=== PATIENT | male | born 1975 | race Caucasian/White ===

== ENCOUNTER 2019-11-20 20:03 | Emergency (ER) | payer OTHER ==
[~2019-11-20] VITALS: Ht 175.3 cm; Wt 74.8 kg
[2019-11-21] MEDS ORDERED: LOSA50 PO (02:06)
[2019-11-21] MEDS ORDERED: Naltrexone HCl50 MG PO (02:06)
[2019-11-21] MEDS ORDERED: ATOM60 PO (02:07)
[2019-11-21] MEDS ORDERED: IBUP800 PO (02:07)
[2019-11-21] MEDS ORDERED: ESCI10 PO (02:07)
[2019-11-21] MEDS ORDERED: ARIP20 PO (02:07)
[2019-11-21] MEDS ORDERED: BUSP10 PO (02:08)
[2019-11-21] MEDS ORDERED: PRAZ1 PO (02:08)
[2019-11-21] MEDS ORDERED: HYDPAM50 PO (02:09)
[2019-11-21] MEDS ORDERED: DONE5 PO (02:09)
[2019-11-21] MEDS ORDERED: Catapres0.2 MG PO (02:09)
== END 2019-11-21 02:41 | disposition home or self-care (01) ==
LOC: ER 20:03
DX: R19.7 Diarrhea, unspecified (principal); F17.200 Nicotine dependence, unspecified, uncomplicated
CPT/HCPCS: 99283

== ENCOUNTER 2020-05-20 17:45 | Emergency (ER) | payer OTHER ==
[~2020-05-20] VITALS: Ht 172.7 cm; Wt 74.8 kg
[~2020-05-20 17:45] MED LIST: ARIP20 PO; ATOM60 PO; BUSP10 PO; Catapres0.2 MG PO; DONE5 PO; ESCI10 PO; HYDPAM50 PO; IBUP800 PO; LOSA50 PO; Naltrexone HCl50 MG PO; PRAZ1 PO
[2020-05-20] MEDS ORDERED: Bactrim Ds Tab1 EACH PO (18:27)
== END 2020-05-20 18:35 | disposition home or self-care (01) ==
LOC: ER 17:45
DX: L08.9 Local infection of the skin and subcutaneous tissue, unspecified (principal); F17.200 Nicotine dependence, unspecified, uncomplicated; Z86.14 Personal history of Methicillin resistant Staphylococcus aureus infection; Z79.899 Other long term (current) drug therapy
CPT/HCPCS: 99283; A9270

== ENCOUNTER 2023-07-21 23:01 | Inpatient (IN) | payer OTHER ==
[~2023-07-21] VITALS: Ht 172.7 cm; Wt 81.5 kg
[2023-07-25 04:12] VITALS: BP 144/97
== END 2023-07-25 13:10 | disposition home or self-care (01) | DRG 871 ==
LOC: ER 23:01 → PCU 07-22 05:03 → MEDS 07-24 13:51
PROVIDERS: ADMIT Internal Medicine
DX: A41.9 Sepsis, unspecified organism (principal); J18.9 Pneumonia, unspecified organism; R65.20 Severe sepsis without septic shock; K31.89 Other diseases of stomach and duodenum; F17.210 Nicotine dependence, cigarettes, uncomplicated; E86.0 Dehydration; G89.29 Other chronic pain; I10 Essential (primary) hypertension; Z86.14 Personal history of Methicillin resistant Staphylococcus aureus infection; Z79.899 Other long term (current) drug therapy; Z79.891 Long term (current) use of opiate analgesic

== ENCOUNTER 2024-01-03 08:11 | Emergency (ER) | payer OTHER ==
[~2024-01-03] VITALS: Ht 170.2 cm; Wt 74.8 kg
[~2024-01-03 08:11] MED LIST changes: +AMLO10 PO; +AMOCLA875 PO; +Bactrim Ds Tab1 EACH PO; +IBUP600 PO; +OXYC5 PO; +VISBIOME 112.51 EACH PO
[2024-01-03 12:15] VITALS: BP 117/84
[2024-01-03] MEDS ORDERED: NS 1,000 ML IV SCH (13:25)
[2024-01-03] MEDS ORDERED: CefTRIAXone Sodium 1,000 MG in NS 100 ML IV ONE (13:25)
[2024-01-03] MEDS ORDERED: Dexamethasone Sod Phos 10 MG/ML 1ML VIAL IV ONE (13:25)
[2024-01-03] MEDS ORDERED: Acetaminophen 500 MG Tab PO ONE (13:25)
[2024-01-03 13:38] LABS: Source, Urine Clean Catch
[2024-01-03 13:42] LABS: Appearance, Urine Clear (Clear); Bilirubin, Urine Neg (Neg); Blood, Urine 1+ (Neg); Color, Urine Yellow (P-Yellow); Glucose Qualitative, Urine Neg (Neg); Ketones, Urine Neg (Neg); Leukocyte Esterase, Urine 2+ (Neg); Nitrite, Urine Neg (Neg); Protein, Urine 2+ (Neg); Urobilinogen, Urine NORM (Normal)
[2024-01-03 13:51] LABS: Bacteria Few /hpf; Squamous Epithelial Cells Rare /hpf (Few); White Blood Cells, Urine 25-50 /hpf (0-5)
[2024-01-03 13:52] LABS: Mucus Light (0-Heavy)
[2024-01-03] MEDS ORDERED: PRED20 PO (14:00)
[2024-01-03] MEDS ORDERED: SULTRIDS PO (14:00)
== END 2024-01-03 14:13 | disposition left against medical advice (07) ==
LOC: ER 08:11
PROVIDERS: Student in an Organized Health Care Education/Training Program
DX: R20.0 Anesthesia of skin (principal); F17.200 Nicotine dependence, unspecified, uncomplicated; Z53.21 Procedure and treatment not carried out due to patient leaving prior to being seen by health care provider
CPT/HCPCS: 76870; 81001; 87086; 99284-25

== ENCOUNTER → 2024-01-18 | Outpatient (CLI) | payer OTHER ==
[~2024-01-18] MED LIST changes: +PRED20 PO; +SULTRIDS PO
[2024-01-20 10:51] LABS: Stool Occult Bld Immuno 1 Negative (NEGATIVE)
== END ==
LOC: LAB SHORT 10:00 → LAB 10:00
PROVIDERS: Family Medicine
DX: Z12.11 Encounter for screening for malignant neoplasm of colon (principal)
CPT/HCPCS: G0328

== ENCOUNTER → 2024-04-14 | Outpatient (CLI) | payer OTHER ==
[2024-04-19 12:11] LABS: APTIMA MEDIA TYPE Urine; C. TRACHOMATIS BY TMA Negative (Negative); N. GONORRHOEAE BY TMA Negative (Negative); SPECIMEN SOURCE Urine; T. VAGINALIS BY TMA Negative (Negative)
== END ==
LOC: LAB 12:28 → LAB SHORT 12:28
PROVIDERS: Registered Nurse Community Health
DX: Z11.3 Encounter for screening for infections with a predominantly sexual mode of transmission (principal); Z20.2 Contact with and (suspected) exposure to infections with a predominantly sexual mode of transmission
CPT/HCPCS: 87491; 87591; 87661

== ENCOUNTER 2024-07-12 19:32 | Emergency (ER) | payer OTHER ==
[~2024-07-12] VITALS: Ht 172.7 cm; Wt 79.4 kg
[2024-07-12 19:47] VITALS: BP 139/90
[2024-07-12] MEDS ORDERED: LORazepam 1 MG Tab PO ONE (20:30)
[2024-07-12] MEDS ORDERED: Cephalexin Monohydrate 500 MG Cap PO ONE (20:30)
[2024-07-12] MEDS ORDERED: CEPH500 PO (20:43)
== END 2024-07-12 20:49 | disposition home or self-care (01) ==
LOC: ER 19:32
DX: F41.9 Anxiety disorder, unspecified (principal); L08.9 Local infection of the skin and subcutaneous tissue, unspecified; L02.212 Cutaneous abscess of back [any part, except buttock and flank]; F17.200 Nicotine dependence, unspecified, uncomplicated; Z79.899 Other long term (current) drug therapy; Z79.52 Long term (current) use of systemic steroids
CPT/HCPCS: 99283; A9270